=== PATIENT | male | born 1985 | race Caucasian/White ===

== ENCOUNTER → 2019-09-09 09:26 | Outpatient (BNVA) | payer BC, SELFPAY | PROVIDERS: Family Provider Nurse Practitioner Family; PCP Nurse Practitioner Family; Visit Provider Registered Nurse | DX: E11.9 Type 2 diabetes mellitus without complications (principal); Z79.4 Long term (current) use of insulin | CPT/HCPCS: 83036 ==

== ENCOUNTER → 2020-04-27 17:10 | Outpatient (BNVA) | payer BC, SELFPAY | PROVIDERS: Family Provider Nurse Practitioner Family; PCP Nurse Practitioner Family; Visit Provider Nurse Practitioner Family | DX: Z20.828 Contact with and (suspected) exposure to other viral communicable diseases (principal) | CPT/HCPCS: 87635 ==

== ENCOUNTER → 2020-05-07 16:07 | Outpatient (BNVA) | payer BC, SELFPAY | PROVIDERS: Family Provider Nurse Practitioner Family; PCP Nurse Practitioner Family; Visit Provider Registered Nurse | DX: E11.9 Type 2 diabetes mellitus without complications (principal) | CPT/HCPCS: 80053; 83036 ==

== ENCOUNTER → 2020-12-23 09:10 | Outpatient (BNVA) | payer BC, SELFPAY | PROVIDERS: Family Provider Nurse Practitioner Family; PCP Registered Nurse; Visit Provider Registered Nurse | DX: E11.9 Type 2 diabetes mellitus without complications (principal); I10 Essential (primary) hypertension | CPT/HCPCS: 80053; 83036; 85025 ==

== ENCOUNTER → 2021-09-27 15:37 | Outpatient (BNVA) | payer BC, SELFPAY | PROVIDERS: Family Provider Nurse Practitioner Family; PCP Registered Nurse; Visit Provider Registered Nurse | DX: E11.9 Type 2 diabetes mellitus without complications (principal) | CPT/HCPCS: 83036 ==

== ENCOUNTER → 2022-09-21 16:01 | Outpatient (BNVA) | payer OTHER, SELFPAY | PROVIDERS: Family Provider Nurse Practitioner Family; PCP Registered Nurse; Visit Provider Registered Nurse | DX: E11.9 Type 2 diabetes mellitus without complications (principal) | CPT/HCPCS: 80053; 80061; 83036; 85025 ==

== ENCOUNTER → 2023-08-16 11:11 | Outpatient (BNVA) | payer OTHER, SELFPAY | PROVIDERS: Family Provider Nurse Practitioner Family; PCP Registered Nurse; Visit Provider Registered Nurse | DX: E11.9 Type 2 diabetes mellitus without complications (principal) | CPT/HCPCS: 80053; 83036 ==

== ENCOUNTER → 2024-05-06 10:19 | Outpatient (BNVA) | payer OTHER, SELFPAY | PROVIDERS: Family Provider Nurse Practitioner Family; PCP Registered Nurse; Visit Provider Registered Nurse | DX: E11.9 Type 2 diabetes mellitus without complications (principal) | CPT/HCPCS: 80053; 82607; 83036 ==

== ENCOUNTER → 2024-08-21 07:39 | Outpatient (BNVA) | payer OTHER, SELFPAY | PROVIDERS: Family Provider Nurse Practitioner Family; PCP Registered Nurse; Visit Provider Registered Nurse | DX: J11.1 Influenza due to unidentified influenza virus with other respiratory manifestations (principal) | CPT/HCPCS: 87400 ==

== ENCOUNTER → 2025-04-30 07:07 | Outpatient (BNVA) | payer OTHER, SELFPAY | PROVIDERS: PCP Registered Nurse; Visit Provider Registered Nurse | DX: R10.A0 Flank pain, unspecified side (principal); E11.9 Type 2 diabetes mellitus without complications | CPT/HCPCS: 80053; 81000; 83036; 85025 ==

== ENCOUNTER 2025-05-13 13:37 | Outpatient (CLI) | payer OTHER, SELFPAY ==
--- NOTE | 2025-05-13 14:00 | CTR_ITS ---
PROCEDURE INFORMATION: Exam: CT Abdomen And Pelvis Without Contrast Exam date and time: 05/13/2025 2:11 PM Age: 40 years old Clinical indication: Condition or disease; Kidney or ureter condition; Calculus (stone) in kidney; Additional info: N20.0 - calculus of kidney TECHNIQUE: Imaging protocol: Computed tomography of the abdomen and pelvis without contrast. Radiation optimization: All CT scans at this facility use at least one of these dose optimization techniques: automated exposure control; mA and/or kV adjustment per patient size (includes targeted exams where dose is matched to clinical indication); or iterative reconstruction. COMPARISON: No relevant prior studies available. RADIATION DOSE METRICS: Total DLP (mGy-cm): 838.6 FINDINGS: Liver: Diffuse fatty infiltration of the liver. Otherwise, unremarkable. Gallbladder and biliary ducts: Normal. No calcified stones. No ductal dilation. Pancreas: Normal. No ductal dilation. Spleen: Normal. No splenomegaly. Adrenal glands: Normal. No mass. Kidneys and ureters: 6 mm x 4 mm calculus with 2nd adjacent tiny calculus in the left ureter near the junction of its middle and distal thirds causing obstructive uropathy. This includes moderate left hydronephrosis and hydroureter. A few additional smaller nonobstructing renal calculi bilaterally. Otherwise, unremarkable. Stomach and bowel: Diverticula from the colon. No diverticulitis. Otherwise, unremarkable. Appendix: No evidence of appendicitis. Intraperitoneal space: Unremarkable. No free air. No significant fluid collection. Vasculature: Unremarkable. No abdominal aortic aneurysm. Lymph nodes: Unremarkable. No enlarged lymph nodes. Urinary bladder: Unremarkable. Reproductive: Unremarkable. Bones/joints: Chronic bilateral L4 spondylolysis with grade 1 spondylolisthesis of L4 anteriorly on L5. Mild multilevel spondylosis. Otherwise, unremarkable. Soft tissues: Unremarkable visualized body wall. Otherwise, unremarkable soft tissues. CT/CT kidney stone [id number] IMPRESSION: 1. 6 mm x 4 mm calculus with 2nd adjacent tiny calculus in the left ureter near the junction of its middle and distal thirds causing obstructive uropathy. 2. Diffuse fatty infiltration of the liver. 3. No other acute findings. 4. Additional details as above.
== END 2025-05-13 13:38 | disposition home or self-care (01) ==
LOC: RAD 13:41
PROVIDERS: PCP Registered Nurse; Visit Provider Registered Nurse
DX: N20.0 Calculus of kidney (principal); K76.0 Fatty (change of) liver, not elsewhere classified; K63.89 Other specified diseases of intestine; K57.30 Diverticulosis of large intestine without perforation or abscess without bleeding; M43.16 Spondylolisthesis, lumbar region; M47.896 Other spondylosis, lumbar region
CPT/HCPCS: 74176